=== PATIENT | female | born 1975 | race Caucasian/White ===

== ENCOUNTER 2024-02-02 22:58 | Emergency (ER) | payer OTHER, SELFPAY ==
[2024-02-02 23:07] VITALS: BP 142/88
--- NOTE | 2024-02-02 23:55 | ED.GENMED ---
History of Present Illness
General
Chief Complaint: Dental Problem
Source: patient
Exam Limitations: none
Time Seen by Provider: 02/02/24 23:47
Nursing documentation reviewed up to this point in time: agreed with
Travel History
Have you had any contact with someone who has COVID-19?: No
Do you have any symptoms of coronavirus? Fever > 100 degrees, chills, cough, shortness of breath, sore throat, loss of taste or smell, muscle aches, or headache?: No
History of Present Illness
History of Present Illness:
This is a 48-year-old woman who presents with right upper dental pain, focal swelling with known chronic avulsion/dental carry. She has been following with a dentist with last appointment 2 months ago with plan for dental extraction but thus far
has not been scheduled.
She complained of 3-day history of recurrent focal swelling, pain and began taking an old prescription of clindamycin 3 days ago and admits to moderate improvement in local swelling and redness but prescription ran out today. She noted low-grade
fever yesterday which has resolved today. She does note intermittent loose stools, intermittent nausea but no vomiting. She has been tolerating clear liquids.
She has history of chronic pain syndrome, chronically maintained on Oxy IR 15 mg 5 times daily as well as as Adderall 30 mg twice daily. She has along with Oxy IR been taking ibuprofen 800 mg with last dose 4 hours ago with moderate improvement in
pain.
She notes mild sore throat, mild right submandibular discomfort but no difficulty swallowing. No cough nor shortness of breath, no back or neck pain.
She denies dizziness nor lightheadedness but was noted to have mildly low blood pressure tonight and her daughter was concern for possible sepsis thus recommended she come to the ED.
Blood pressure upon arrival 142/88.
Past History
Past History
ED Past Medical History: Cancer (Thyroid), Hypothyroidism, Psychiatric (ADHD) and Other (Chronic pain syndrome/narcotic dependent)
ED Past Surgical History: , Tonsilectomy and Other (Thyroidectomy)
Social History
Tobacco: Non-smoker
Alcohol: None
Personal: Single
Living: with family
Employment: Not employed
Family History
Family History: Other (Noncontributory)
Phy Exam
Physical Exam
Physical Exam:
GENERAL: 48-year-old woman appears somewhat older than stated age, she is bright and alert, easily communicative and appears in no acute distress. Vital signs reviewed. Afebrile, minimally hypertensive.
EYE: anicteric
NECK: Supple, nontender, no meningismus, no significant adenopathy.
ENT: There is very minimal erythema and very minimal soft tissue swelling right anterior maxillary region. There is chronic appearing dental carry with focal decay and avulsion of tooth #6 with moderate focal erythema of gingiva and early abscess
along the anterior superior gingiva. Moderate local tenderness to palpation. Posterior pharynx is clear, oral mucosa is moist. TM clear b/l, nares patent.
CARDIAC: Regular rate and rhythm. no murmur.
LUNGS: Clear breath sounds bilaterally, no acute respiratory distress, no wheezes/rales/rhonchi
ABDOMEN: Soft, nondistended, without focal tenderness
NEUROLOGICAL: Alert and oriented x3, no focal neuro deficits. Gait is lea and steady.
SKIN: Warm and dry, normal color, skin intact. No rash.
MUSCULOSKELETAL: No C/C/E. peripheral pulses are full and equal b/l. No palpable tenderness.
PSYCH: Normal and appropriate interaction.
Course
Orders/Labs/Results
Orders:
Orders
02/02/24 23:54
Penicillin V Potassium [Pen Vk] 500 mg PO NOW STA
Vital Signs
Initial and Last Documented VS:
Initial Vital Signs
Temp Pulse Resp BP Pulse Ox
98.2 F 94 22 142/88 99
02/02/24 23:07 02/02/24 23:07 02/02/24 23:07 02/02/24 23:07 02/02/24 23:07
Last Documented Vital Signs
Temp Pulse Resp BP Pulse Ox
98.2 F 94 22 142/88 99
02/02/24 23:07 02/02/24 23:07 02/02/24 23:07 02/02/24 23:07 02/02/24 23:07
MDM/Problems Addressed
Differential Diagnosis Includes:
Patient presents with chronic dental caries/chronic dental decay/avulsion of tooth #6 with several day history of increased pain, swelling of gingiva and in right anterior maxillary facial region. Admits to moderate improvement in facial swelling
and redness with initiation of an old prescription of clindamycin 3 days ago which has completed earlier today.
There is note of significant chronic dental decay, chronic avulsion to gingival line of tooth #6 with focal gingival erythema, early abscess formation and mild focal soft tissue swelling right anterior maxillary region.
Overall however patient is nontoxic in appearance, afebrile, without tachycardia nor hypotension. No evidence of SIRS.
No evidence of airway compromise nor submandibular nor sublingual edema. Oral mucosa is moist, clinically appears euvolemic.
As patient has had moderate GI symptoms with clindamycin, recommend we transition to Pen-Vee K for treatment of dental abscess.
At this point no indication for laboratory studies nor imaging and no indication for IV antibiotics.
Patient has been encouraged to follow-up promptly with her dentist.
Recommend she continue her regular pain medication as well as ibuprofen.
Other supportive measures, elevate head of bed, local heat, soft diet.
Return precautions discussed.
*Pulse Oximetry
Patient hypoxic: no
*Critical Care Note
Total Time (30-74mins, 75-104mins- exclusive of procedures): Not Applicable
ED Attending Note
-
Portions of this chart may have been created with voice recognition software.� Occasional wrong word or��sound alike� substitutions may have occurred due to the inherent limitations of voice recognition software.
Discharge Plan
Departure
Patient Disposition: Home (Routine Discharge)
Date of Disposition: 02/03/24
Time of Disposition: 00:06
Patient with high blood pressure during this ER visit?: No
Condition: Good
Discharge Problem:
Dental abscess
Instructions: Tooth Abscess (DC)
Prescriptions:
New
penicillin V potassium 500 mg tablet
500 mg PO QID 10 Days Qty: 40 0RF
Discontinued
oxycodone 5 mg tablet
5 mg PO Q8H PRN (Reason: pain) Qty: 8 0RF
Referrals:
Gilson Wheeler MD [Family Provider] -
Activity Restrictions/Additional Instructions:
Call your dentist on Sunday for prompt follow-up.
Interventions
Interventions:
*Risk Screen - Suicide Last Done: 02/02/24 23:07
*General Assessment Last Done: 02/03/24 00:20
*Neglect/Abuse Screening Last Done: 02/02/24 23:07
*Nursing Disposition Last Done: 02/03/24 00:20
Discharge Date and Time
Discharge Date/Time: 02/03/24 00:28
Print Language: ROMANSH
[2024-02-02] MEDS: PEN VK 500 MG PO (23:58)
== END 2024-02-03 00:28 | disposition home or self-care (01) ==
LOC: EMR 22:58
PROVIDERS: EMERGENCY PHYSICIAN Emergency Medicine; FAMILY PHYSICIAN Internal Medicine
DX: K04.7 Periapical abscess without sinus (principal); K02.9 Dental caries, unspecified
CPT/HCPCS: 99283